=== PATIENT | female | born 1995 | race Caucasian/White ===

== ENCOUNTER 2017-11-20 05:30 | Emergency (ER) | payer OTHER ==
--- NOTE | 2017-11-20 05:45 | ED Physician Documentation ---
PD HPI OVERDOSE - Stated complaint Stated Complaint: POSS MED OD - History obtained from History obtained from: Patient - History of Present Illness Timing - onset: How many hours ago (1) Subtance(s) ingested: Single (she says she took about 10 (estimated) tablets of her Elavil that she is prescribed PRN for sleep. They are 10 mg tablets. She denies suicidal intent per se, but says she was feeling depressed and did it impulsively. Wanting to sleep longer but not kill herslef. She told her friend about it and the friend brought her here cooperatively to get evaluated. Patient says she would like help from us.) Associated symptoms: Other (sleepy). No: Resp depression, Altered mental status Contributing factors: Depresssed. No: Suicidal, Alchoholic, Substance abuse Similar symptoms before: Has not had sx before Recently seen: Not recently seen Review of Systems Constitutional: denies: Fever, Chills Nose: denies: Rhinorrhea / runny nose, Congestion Throat: denies: Sore throat Cardiac: denies: Chest pain / pressure, Palpitations, Pedal edema, Calf pain Respiratory: denies: Cough GI: reports: Nausea. denies: Abdominal Pain, Vomiting, Diarrhea : denies: Dysuria, Frequency Skin: denies: Rash, Lesions Neurologic: reports: Other (sleepy). denies: Focal weakness, Numbness, Near syncope Psychiatric: reports: Depressed, Insomnia. denies: Suicidal, Delusions, Anxiety Endocrine: denies: Weight loss Immunocompromised: denies: Immunocompromised PD PAST MEDICAL HISTORY - Past Medical History Cardiovascular: None Respiratory: None Neuro: None Endocrine/Autoimmune: None GI: None : None HEENT: None Psych: None Musculoskeletal: Rheumatoid arthritis Derm: None - Present Medications Home Medications: Ambulatory Orders Medication Instructions Recorded Confirmed Amitriptyline [Elavil] 10 mg PO DAILY PRN 07/16/16 03/23/17 Hydracoroquin 300 mg PO DAILY 07/16/16 03/23/17 Meloxicam 15 mg PO DAILY 07/16/16 03/23/17 tiZANidine [Zanaflex] 4 mg PO DAILY 07/16/16 03/23/17 Golimumab [Simponi] 50 mg SQ ONCE 12/14/16 03/23/17 cycloSPORINE [Cyclosporine] 25 mg PO BID 12/14/16 03/23/17 - Allergies Allergies/Adverse Reactions: Allergies Allergy/AdvReac Type Severity Reaction Status Date / Time cefprozil [From Cefzil] Allergy Itching Verified 11/20/17 05:56 promethazine HCl * Allergy Itching Verified 11/20/17 05:56 [From Phenergan] Sulfa (Sulfonamide Allergy Cramps Verified 11/20/17 05:56 Antibiotics) - Social History Smoking Status: Never smoker PD ED PE NORMAL - Vitals Vital signs reviewed: Yes - General General: Alert and oriented X 3 (slightly sleepy but conversant.), No acute distress, Well developed/nourished - HEENT HEENT: Atraumatic, Pharynx benign - Neck Neck: Supple, no meningeal sign, No adenopathy - Cardiac Cardiac: RRR (tachycardic at 120), No murmur - Respiratory Respiratory: Clear bilaterally - Abdomen Abdomen: Normal bowel sounds, Soft, Non tender, Non distended - Female Female : Deferred - Rectal Rectal: Deferred - Back Back: No CVA TTP - Derm Derm: Normal color, Warm and dry - Extremities Extremities: No tenderness to palpate, Normal ROM s pain, No edema, No calf tenderness / cord - Neuro Neuro: Alert and oriented X 3, No motor deficit, No sensory deficit, Normal speech Eye Opening: Spontaneous Motor: Obeys Commands Verbal: Oriented GCS Score: 15 - Psych Psych: Normal mood. No: Normal affect (slightly flat) Results - Vitals Vitals: Vital Signs - 24 hr 11/20/17 11/20/17 11/20/17 05:35 06:31 06:54 Temperature 36.6 C Heart Rate 122 H 120 H 118 H Respiratory 20 18 18 Rate Blood Pressure 149/95 H 123/95 H 123/95 H O2 Saturation 100 99 98 Oxygen O2 Source Room air - EKG (time done) 05:47 Rate: Rate (enter#) (132) Rhythm: Sinus tachycardia [place]: Normal Intervals: Normal DE QRS: Normal Ischemia: Normal ST segments. No: ST elevation c/w ischemia, ST depression Compare to prior EKG: Old EKG unavailable - Labs Labs: Laboratory Tests 11/20/17 11/20/17 11/20/17 05:49 05:49 05:49 WBC 13.7 H RBC 4.76 Hgb 13.5 Hct 41.0 MCV 86.1 MCH 28.3 MCHC 32.8 RDW 13.7 Plt Count 336 MPV 8.0 Neut # 10.3 H Lymph # 2.4 Foster # 0.9 Eos # 0.1 Baso # 0.1 Absolute Nucleated RBC 0.02 Nucleated RBC % 0.1 VBG pH VBG pCO2 VBG pO2 VBG HCO3 VBG Total CO2 VBG O2 Saturation VBG Base Excess Sodium 137 Potassium 3.6 Chloride 103 Carbon Dioxide 22 Anion Gap 12.0 BUN 11 Creatinine 0.7 Estimated GFR (MDRD) 105 Glucose 110 H Calcium 8.9 Magnesium 1.6 L Total Bilirubin 0.3 AST 67 H ALT 33 Alkaline Phosphatase 100 Total Protein 7.3 Albumin 4.0 Globulin 3.3 Albumin/Globulin Ratio 1.2 Lipase 21 L TSH 2.80 Salicylates < 6.0 Acetaminophen < 10 L Ethyl Alcohol < 5.0 11/20/17 07:28 WBC RBC Hgb Hct MCV MCH MCHC RDW Plt Count MPV Neut # Lymph # Foster # Eos # Baso # Absolute Nucleated RBC Nucleated RBC % VBG pH 7.429 H VBG pCO2 35.7 L VBG pO2 67.2 H VBG HCO3 23.1 VBG Total CO2 24.2 VBG O2 Saturation 94.2 H VBG Base Excess -0.8 Sodium Potassium Chloride Carbon Dioxide Anion Gap BUN Creatinine Estimated GFR (MDRD) Glucose Calcium Magnesium Total Bilirubin AST ALT Alkaline Phosphatase Total Protein Albumin Globulin Albumin/Globulin Ratio Lipase TSH Salicylates Acetaminophen Ethyl Alcohol PD MEDICAL DECISION MAKING - ED course Complexity details: reviewed results, considered differential (overdose of elavil but at dose that should not be very harmful (about 100 mg). Tachycardic with normal conduction. Will give IV fluids, and since ingestion only about an hour ago, will give charcoal. Expect some tachycardia and will see if it improves. Will need to watch her few hours, and can have SW talk with her as well. ), d/w patient, other (Care given over to Dr. Machado, [facility] [place], with verbal report. ) Departure - Departure Clinical Impression: Depression Qualifiers: Depression Type: dysthymia Qualified Code(s): F34.1 - Dysthymic disorder Medication overdose Qualifiers: Encounter type: initial encounter Injury intent: undetermined intent Qualified Code(s): T50.904A - Poisoning by unspecified drugs, medicaments and biological substances, undetermined, initial encounter Condition: Stable Record reviewed to determine appropriate education?: Yes
[2017-11-20] MEDS ORDERED: SODIUM CHLORIDE 0.9% 1,000 ML IV ONE (05:53)
[2017-11-20] MEDS ORDERED: SODIUM BICARBONATE 100 MEQ in SODIUM CHLORIDE 0.9% 1,000 ML IV ONE (05:56)
[2017-11-20 06:01] LABS: BASOPHILS # (AUTO) 0.1 10^3/uL (0.0-0.1); BASOPHILS % (AUTO) 0.9 %; EOSINOPHILS # (AUTO) 0.1 10^3/uL (0.0-0.7); EOSINOPHILS % (AUTO) 0.6 %; HGB - HEMOGLOBIN 13.5 g/dL (12.0-16.0); LYMPHOCYTES # (AUTO) 2.4 10^3/uL (1.5-3.5); LYMPHOCYTES % (AUTO) 17.4 %; MEAN CORPUSCULAR HEMOGLOBIN 28.3 pg (27.0-31.0); MEAN CORPUSCULAR HGB CONC 32.8 g/dL (32.0-36.0); MEAN CORPUSCULAR VOLUME 86.1 fL (81.0-99.0); MONOCYTES # (AUTO) 0.9 10^3/uL (0.0-1.0); MONOCYTES % (AUTO) 6.2 %; NEUTROPHILS # (AUTO) 10.3 10^3/uL (1.5-6.6); NEUTROPHILS % (AUTO) 74.9 %; PLT - PLATELET COUNT 336 10^3/uL (130-450); RED BLOOD COUNT 4.76 10^6/uL (4.20-5.40); RED CELL DISTRIBUTION WIDTH 13.7 % (12.0-15.0); WHITE BLOOD COUNT 13.7 x10^3/uL (4.8-10.8)
[2017-11-20] MEDS ORDERED: CHARCOAL ACTIVATED 25 GM/120 ML BOTTLE PO STA (06:01)
[2017-11-20 06:13] LABS: ALBUMIN/GLOBULIN RATIO 1.2 (1.0-2.2); ALKALINE PHOSPHATASE 100 IU/L (42-121); ALT ALANINE AMINOTRANSFERASE 33 IU/L (10-60); AST ASPARTATE AMINOTRANSFERASE 67 IU/L (10-42); BILIRUBIN,TOTAL 0.3 mg/dL (0.2-1.0); BUN - BLOOD UREA NITROGEN 11 mg/dL (6-20); CALCIUM 8.9 mg/dL (8.5-10.3); CARBON DIOXIDE - CO2 22 mmol/L (21-32); CHLORIDE 103 mmol/L (101-111); CREATININE 0.7 mg/dL (0.4-1.0); GFR - MDRD 105 (>89); GLUCOSE 110 mg/dL (70-100); LIPASE 21 U/L (22-51); MAGNESIUM 1.6 mg/dL (1.7-2.8); SALICYLATE < 6.0 mg/dL; SODIUM 137 mmol/L (135-145); TOTAL PROTEIN 7.3 g/dL (6.7-8.2)
[2017-11-20 06:19] LABS: ACETAMINOPHEN < 10 ug/mL (10-30)
[2017-11-20] MEDS ORDERED: SODIUM BICARBONATE ABBOJECT 50 MEQ/50 ML SYRINGE ONE (06:23)
[2017-11-20 07:36] LABS: VBG PCO2 35.7 mmHg (41-51); VBG PH 7.429 (7.31-7.41); VBG PO2 67.2 mmHg (25-47)
[2017-11-20 07:37] LABS: VBG BASE EXCESS -0.8 mmol/L (-2 - +2); VBG TOTAL CO2 24.2 mmol/L (24-29)
--- NOTE | 2017-11-20 07:58 | ED Physician Documentation ---
History of Present Illness - Stated complaint Stated Complaint: POSS MED OD - Chief complaint Chief Complaint: MHE Review of Systems Constitutional: denies: Fever Cardiac: denies: Chest pain / pressure Respiratory: denies: Dyspnea, Cough GI: denies: Abdominal Pain Skin: denies: Rash Neurologic: denies: Headache Psychiatric: reports: Suicidal (maybe) PD PAST MEDICAL HISTORY - Past Medical History Past Medical History: No Cardiovascular: None Respiratory: None Neuro: None Endocrine/Autoimmune: None GI: None : None HEENT: None Psych: None Musculoskeletal: Rheumatoid arthritis Derm: None - Past Surgical History Past Surgical History: Yes - Present Medications Home Medications: Ambulatory Orders Medication Instructions Recorded Confirmed Amitriptyline [Elavil] 10 mg PO DAILY PRN 07/16/16 03/23/17 Hydracoroquin 300 mg PO DAILY 07/16/16 03/23/17 Meloxicam 15 mg PO DAILY 07/16/16 03/23/17 tiZANidine [Zanaflex] 4 mg PO DAILY 07/16/16 03/23/17 Golimumab [Simponi] 50 mg SQ ONCE 12/14/16 03/23/17 cycloSPORINE [Cyclosporine] 25 mg PO BID 12/14/16 03/23/17 - Allergies Allergies/Adverse Reactions: Allergies Allergy/AdvReac Type Severity Reaction Status Date / Time cefprozil [From Cefzil] Allergy Itching Verified 11/20/17 05:56 promethazine HCl * Allergy Itching Verified 11/20/17 05:56 [From Phenergan] Sulfa (Sulfonamide Allergy Cramps Verified 11/20/17 05:56 Antibiotics) - Social History Does the pt smoke?: No Smoking Status: Never smoker Does the pt have substance abuse?: No - POLST Patient has POLST: No PD ED PE NORMAL - Vitals Vital signs reviewed: Yes - General General: Alert and oriented X 3 - HEENT HEENT: PERRL - Cardiac Cardiac: RRR (tachy) - Respiratory Respiratory: Clear bilaterally - Abdomen Abdomen: Soft, Non tender - Neuro Neuro: Alert and oriented X 3 Results - Vitals Vitals: Vital Signs - 24 hr 11/20/17 11/20/17 11/20/17 05:35 06:31 06:54 Temperature 36.6 C Heart Rate 122 H 120 H 118 H Respiratory 20 18 18 Rate Blood Pressure 149/95 H 123/95 H 123/95 H O2 Saturation 100 99 98 11/20/17 11/20/17 11/20/17 09:00 10:06 12:17 Temperature Heart Rate 108 H 124 H 105 H Respiratory 17 16 17 Rate Blood Pressure 128/84 H 128/90 H 129/89 H O2 Saturation 98 99 99 Oxygen O2 Source Room air - Labs Labs: Laboratory Tests 11/20/17 11/20/17 11/20/17 05:49 05:49 05:49 WBC 13.7 H RBC 4.76 Hgb 13.5 Hct 41.0 MCV 86.1 MCH 28.3 MCHC 32.8 RDW 13.7 Plt Count 336 MPV 8.0 Neut # 10.3 H Lymph # 2.4 Gillespie # 0.9 Eos # 0.1 Baso # 0.1 Absolute Nucleated RBC 0.02 Nucleated RBC % 0.1 VBG pH VBG pCO2 VBG pO2 VBG HCO3 VBG Total CO2 VBG O2 Saturation VBG Base Excess Sodium 137 Potassium 3.6 Chloride 103 Carbon Dioxide 22 Anion Gap 12.0 BUN 11 Creatinine 0.7 Estimated GFR (MDRD) 105 Glucose 110 H Calcium 8.9 Magnesium 1.6 L Total Bilirubin 0.3 AST 67 H ALT 33 Alkaline Phosphatase 100 Total Protein 7.3 Albumin 4.0 Globulin 3.3 Albumin/Globulin Ratio 1.2 Lipase 21 L TSH 2.80 Salicylates < 6.0 Acetaminophen < 10 L Ethyl Alcohol < 5.0 11/20/17 07:28 WBC RBC Hgb Hct MCV MCH MCHC RDW Plt Count MPV Neut # Lymph # Gillespie # Eos # Baso # Absolute Nucleated RBC Nucleated RBC % VBG pH 7.429 H VBG pCO2 35.7 L VBG pO2 67.2 H VBG HCO3 23.1 VBG Total CO2 24.2 VBG O2 Saturation 94.2 H VBG Base Excess -0.8 Sodium Potassium Chloride Carbon Dioxide Anion Gap BUN Creatinine Estimated GFR (MDRD) Glucose Calcium Magnesium Total Bilirubin AST ALT Alkaline Phosphatase Total Protein Albumin Globulin Albumin/Globulin Ratio Lipase TSH Salicylates Acetaminophen Ethyl Alcohol PD MEDICAL DECISION MAKING - ED course ED course: assumed care 730 AM 22 f took approx 10 10mg elavil at 420 AM she is vague re whether she was trying to harm herself or just trying to sleep no other meds or EtOH she is very sleepy now denies fever cough NVD CP AP called poison control - advised tjis is unlikely to be toxic - can dc bicarb - ons 6 hr watching for tachy QRS widening, BP fluctuations - then will be clear for MHE seen by PITO Perkins and per PITO is not suicidal at this time, has friends locally and is aware of resources through (see PITO note) watched until 1215 and HR down Departure - Departure Disposition: Home, Self Care Clinical Impression: Depression Qualifiers: Depression Type: dysthymia Qualified Code(s): F34.1 - Dysthymic disorder Medication overdose Qualifiers: Encounter type: initial encounter Injury intent: undetermined intent Qualified Code(s): T50.904A - Poisoning by unspecified drugs, medicaments and biological substances, undetermined, initial encounter Condition: Stable Comments: Please be very careful to only take your medications as prescribed. Even a few extra doses can be very dangerous. 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 Return to the ER if worse.
[2017-11-20] MEDS ORDERED: MAGNESIUM OXIDE 400 MG TABLET PO STA (09:30)
[2017-11-20 12:19] VITALS: BP 129/89
== END 2017-11-20 12:25 | disposition home or self-care (01) ==
LOC: ED 05:30
DX: F34.1 Dysthymic disorder (principal); T43.011A Poisoning by tricyclic antidepressants, accidental (unintentional), initial encounter; R00.0 Tachycardia, unspecified
CPT/HCPCS: 36415; 80053; 80307; 80320; 80329; 82803; 83690; 83735; 84443; 85025; 93005; 96365; 96366; 99284; A9270

== ENCOUNTER 2017-11-24 18:48 | Emergency (ER) | payer OTHER ==
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
[2017-11-24 21:44] VITALS: BP 158/111
== END 2017-11-24 21:00 | disposition home or self-care (01) ==
LOC: ED 18:48
DX: R20.2 Paresthesia of skin (principal)
CPT/HCPCS: 99283

== ENCOUNTER 2021-03-16 18:46 | Outpatient (CLI) | payer OTHER ==
--- NOTE | 2021-03-17 11:22 | Ultrasound Report ---
PROCEDURE: OB F/U or Repeat INDICATIONS: SUPERVISION OF HIGH RISK OUTSIDE/PRIOR DATING DATA: Last menstrual period (LMP): Not available. LMP-based estimated date of delivery (ELIZABETH): Not available. First dating scan (date and location): This study, and prior exam not available for review.. Estimated date of delivery (ELIZABETH) from first dating scan: 04/27/2021. TECHNIQUE: Real-time scanning was performed of the fetus, with image documentation and biometric measurements. Endovaginal scanning: Not needed. COMPARISON: Not available FINDINGS: General: A single living intrauterine gestation is present. Presentation: Vertex Placenta: Placental position is anterior, without previa. Amniotic fluid index: 10.1 cm, normal for gestational age. heart rate: 125 beats per minute. Maternal cervical canal: 4.8 cm long; normal length is 2.5 cm or more. biometrics: Biparietal diameter: 8.8 cm, 35 weeks 4 days Head circumference: 31.1 cm, 34 weeks 5 days Abdominal circumference: 30.3 cm, 34 weeks 2 days Femur length: 6.7 cm, 34 weeks 4 days Estimated gestational age from initial scan: 34 weeks 0 days. Composite gestational age from present scan: 34 weeks 6 days Estimated weight and percentile: 2452 g, 60th percentile Measurement variability in biometric dating: +/- 10 days from 12-20 weeks gestation, +/- 2 weeks from 20-30 weeks gestation, +/- 3 weeks at 30 weeks gestation or more. Other: Normal survey of anatomy.. IMPRESSION: 34 week 6 day gestational age from this study, delivered a projected to be centered on normal survey of anatomy. Normal amniotic fluid volume, anterior placenta, vertex prese ntation. Reviewed by: Moiz Cabrera MD on 03/17/2021 11:20 AM PDT Approved by: Moiz Cabrera MD on 03/17/2021 11:20 AM PDT Station ID: [id number]
== END 2021-03-16 18:47 | disposition home or self-care (01) ==
LOC: DI 18:46
PROVIDERS: ATTEND Obstetrics & Gynecology
DX: O09.90 Supervision of high risk pregnancy, unspecified, unspecified trimester (principal); O43.129 Velamentous insertion of umbilical cord, unspecified trimester; O16.9 Unspecified maternal hypertension, unspecified trimester; Z3A.34 34 weeks gestation of pregnancy

== ENCOUNTER 2021-03-25 14:25 | Outpatient (CLI) | payer OTHER ==
[2021-03-25 15:13] LABS: BASOPHILS # (AUTO) 0.1 10^3/uL (0.0-0.1); BASOPHILS % (AUTO) 0.4 %; EOSINOPHILS # (AUTO) 0.1 10^3/uL (0.0-0.7); EOSINOPHILS % (AUTO) 0.8 %; HCT - HEMATOCRIT 31.4 % (37.0-47.0); HGB - HEMOGLOBIN 10.5 g/dL (12.0-16.0); LYMPHOCYTES # (AUTO) 3.3 10^3/uL (1.5-3.5); LYMPHOCYTES % (AUTO) 27.9 %; MEAN CORPUSCULAR HEMOGLOBIN 27.6 pg (27.0-31.0); MEAN CORPUSCULAR HGB CONC 33.4 g/dL (32.0-36.0); MEAN CORPUSCULAR VOLUME 82.4 fL (81.0-99.0); MEAN PLATELET VOLUME 9.9 fL (7.9-10.8); MONOCYTES # (AUTO) 0.8 10^3/uL (0.0-1.0); MONOCYTES % (AUTO) 6.6 %; NEUTROPHILS # (AUTO) 7.5 10^3/uL (1.5-6.6); PLT - PLATELET COUNT 308 10^3/uL (130-450); RED BLOOD COUNT 3.81 10^6/uL (4.20-5.40); WHITE BLOOD COUNT 11.7 x10^3/uL (4.8-10.8)
[2021-03-25 15:25] LABS: ALBUMIN 2.9 g/dL (3.2-5.5); ALBUMIN/GLOBULIN RATIO 0.9 (1.0-2.2); BILIRUBIN,TOTAL 0.3 mg/dL (0.2-1.0); CALCIUM 8.8 mg/dL (8.5-10.3); CREATININE 0.7 mg/dL (0.4-1.0); POTASSIUM 4.2 mmol/L (3.5-5.0); URIC ACID 5.5 mg/dL (2.6-7.2)
[2021-03-25 15:41] LABS: RUPTURE OF MEMBRANES PLUS NEGATIVE (NEGATIVE)
[2021-03-25 15:41] LABS: CREATININE,URINE 174.2 mg/dL; PROTEIN/CREATININE RATIO,URINE 0.1 (<=0.2)
[2021-03-25 16:20] VITALS: BP 132/64
--- NOTE | 2021-03-25 16:35 | PROCEDURE REPORT ---
- HPI Diagnosis/Indication for NST: Gestational Hypertension Current EDU 04/27/21 Gestation 35 Weeks and 2 Days 1 Para 0 Vital Signs Temperature 37.0 C 03/25/21 14:40 Heart Rate 103 H 03/25/21 14:40 Respiratory Rate 18 03/25/21 14:40 Blood Pressure 112/73 03/25/21 14:40 O2 Saturation 98 03/25/21 14:40 Temperature 37.0 C 03/25/21 14:40 Heart Rate 103 H 03/25/21 14:40 Respiratory Rate 18 03/25/21 14:40 Blood Pressure 132/64 H 03/25/21 16:00 O2 Saturation 98 03/25/21 14:40 - NST Procedure NST Procedure Start Date 03/25/21 Start Time 14:34 Stop Time 16:04 Vibroacoustic Stimulation Used No Patient States Movement Yes - Results and Plan Findings/Impression: REACTIVE NST P/C 0.1 NORMAL BP Plan: CONTINUE ANTINATAL MONITORING
== END 2021-03-25 16:10 | disposition home or self-care (01) ==
LOC: WFO 14:25 → FBP 14:27 → WFO 16:10
PROVIDERS: ATTEND Obstetrics & Gynecology
DX: O13.3 Gestational [pregnancy-induced] hypertension without significant proteinuria, third trimester (principal); O09.93 Supervision of high risk pregnancy, unspecified, third trimester; Z3A.35 35 weeks gestation of pregnancy
CPT/HCPCS: 36415; 59025; 80053; 82570; 84112; 84156; 84550; 85025; 87081; 99214

== ENCOUNTER 2021-04-02 12:37 | Outpatient (CLI) | payer OTHER ==
[2021-04-02 13:07] LABS: BASOPHILS % (AUTO) 0.3 %; EOSINOPHILS # (AUTO) 0.1 10^3/uL (0.0-0.7); EOSINOPHILS % (AUTO) 0.7 %; HCT - HEMATOCRIT 32.8 % (37.0-47.0); HGB - HEMOGLOBIN 10.9 g/dL (12.0-16.0); LYMPHOCYTES # (AUTO) 3.4 10^3/uL (1.5-3.5); LYMPHOCYTES % (AUTO) 25.8 %; MEAN CORPUSCULAR HEMOGLOBIN 27.5 pg (27.0-31.0); MEAN CORPUSCULAR HGB CONC 33.2 g/dL (32.0-36.0); MEAN CORPUSCULAR VOLUME 82.6 fL (81.0-99.0); MEAN PLATELET VOLUME 9.9 fL (7.9-10.8); MONOCYTES # (AUTO) 0.7 10^3/uL (0.0-1.0); MONOCYTES % (AUTO) 5.6 %; NEUTROPHILS # (AUTO) 8.7 10^3/uL (1.5-6.6); NEUTROPHILS % (AUTO) 67.1 %; PLT - PLATELET COUNT 297 10^3/uL (130-450); RED BLOOD COUNT 3.97 10^6/uL (4.20-5.40); RED CELL DISTRIBUTION WIDTH 15.6 % (12.0-15.0)
[2021-04-02 13:20] LABS: ALBUMIN 2.8 g/dL (3.2-5.5); ALBUMIN/GLOBULIN RATIO 0.9 (1.0-2.2); BILIRUBIN,TOTAL 0.4 mg/dL (0.2-1.0); CALCIUM 8.8 mg/dL (8.5-10.3); CREATININE 0.5 mg/dL (0.4-1.0); POTASSIUM 4.2 mmol/L (3.5-5.0); TOTAL PROTEIN 5.9 g/dL (6.7-8.2)
[2021-04-02 13:21] LABS: CREATININE,URINE 115.1 mg/dL; PROTEIN/CREATININE RATIO,URINE 0.1 (<=0.2)
[2021-04-02 13:22] VITALS: BP 126/89
--- NOTE | 2021-04-02 15:08 | Ultrasound Report ---
PROCEDURE: OB Limited INDICATIONS: r/o pre e OUTSIDE/PRIOR DATING DATA: Last menstrual period (LMP): 07/21/2020. LMP-based estimated date of delivery (ELIZABETH): 04/27/2021. First dating scan (date and location): 03/16/2021. Estimated date of delivery (ELIZABETH) from first dating scan: 04/27/2021. TECHNIQUE: Real-time scanning was performed of the fetus, with image documentation. Endovaginal scanning: Not needed COMPARISON: 03/16/2021 OB ultrasound FINDINGS: A single living intrauterine gestation is present. Presentation: Vertex Placenta: Placental position is anterior, without previa. Amniotic fluid index: 16.9 cm, normal for gestational age. heart rate: 132 beats per minutes. Maternal cervical canal: 3.7 cm long; normal length is 2.5 cm or more. Estimated gestational age from initial scan: 36 weeks 3 days. IMPRESSION: 36 weeks 3 days gestational age with cardiac activity observed and normal amniotic fluid index of 16.9 cm with largest pocket of this amniotic fluid measuring 6.1 cm. The delivery date is projected to be centered on 04/27/2021 from the earliest available OB ultrasound Reviewed by: Moiz Cabrera MD on 04/02/2021 3:07 PM PDT Approved by: Moiz Cabrera MD on 04/02/2021 3:07 PM PDT Station ID: [id number]
--- NOTE | 2021-04-21 21:11 | PROCEDURE REPORT ---
- HPI Diagnosis/Indication for NST: Pre- Hypertension Current EDU 04/27/21 Gestation 36 Weeks and 3 Days 1 Para 0 Vital Signs Heart Rate 100 04/02/21 12:52 Respiratory Rate 20 04/02/21 12:52 Blood Pressure 132/102 H 04/02/21 12:52 Temperature 98.4 F 04/02/21 13:37 Heart Rate 95 04/02/21 13:01 Respiratory Rate 17 04/02/21 13:01 Blood Pressure 126/89 H 04/02/21 13:01 O2 Saturation 98 04/02/21 13:01 - NST Procedure NST Procedure Start Date 04/02/21 Start Time 12:51 Stop Time 14:04 Vibroacoustic Stimulation Used No Patient States Movement Yes EFM 135 mod eduin 15x15 accels no decels TOCO: quiet - Results and Plan Findings/Impression: 25 yo at 36+3 with CHTN here for NST Elevated blood pressures Sent PIH labs: CMP/CBC/protein:creatinine wnl Warning signs reviewed Not yet meeting criteria for medication Cat I tracing Cont with twice weekly NST and weekly RAMSES DX: IUP at 36+3 wga CHTN DOS: 04/02/21 NST read 04/02/21
== END 2021-04-02 14:35 | disposition home or self-care (01) ==
LOC: WFO 12:37 → FBP 12:38 → WFO 14:35
PROVIDERS: ATTEND Obstetrics & Gynecology
DX: O10.913 Unspecified pre-existing hypertension complicating pregnancy, third trimester (principal); Z3A.36 36 weeks gestation of pregnancy
CPT/HCPCS: 36415; 80053; 82570; 83615; 84156; 84550; 85025; 86850; 86900; 86901; 99214

== ENCOUNTER 2021-04-04 09:01 | Outpatient (CLI) | payer OTHER ==
[2021-04-04 09:17] VITALS: BP 126/86
--- NOTE | 2021-04-21 21:05 | PROCEDURE REPORT ---
- HPI Diagnosis/Indication for NST: Gestational Hypertension Current EDU 04/27/21 Gestation 36 Weeks and 5 Days 1 Para 0 Vital Signs Temperature 98.4 F 04/04/21 09:16 Heart Rate 93 04/04/21 09:16 Respiratory Rate 18 04/04/21 09:16 Blood Pressure 126/86 H 04/04/21 09:16 O2 Saturation 100 04/04/21 09:16 Temperature 98.4 F 04/04/21 09:16 Heart Rate 93 04/04/21 09:16 Respiratory Rate 18 04/04/21 09:16 Blood Pressure 126/86 H 04/04/21 09:16 O2 Saturation 100 04/04/21 09:16 - NST Procedure NST Procedure Start Date 04/04/21 Start Time 09:12 Stop Time 09:51 Vibroacoustic Stimulation Used No Patient States Movement Yes EFM 145 mod eduin 15x15 accels no decels TOCO: quiet - Results and Plan Findings/Impression: 25 yo at 36+5 wga with affected by CHTN here for NST Cat I tracing Cont with twice weekly NST and weekly RAMSES DX: IUP at 36+5 wga CHTN NST read 04/04/21 DOS 04/04/21
== END 2021-04-04 10:05 | disposition home or self-care (01) ==
LOC: WFO 09:01 → FBP 09:02 → WFO 10:05
PROVIDERS: ATTEND Obstetrics & Gynecology
DX: O10.913 Unspecified pre-existing hypertension complicating pregnancy, third trimester (principal); Z3A.36 36 weeks gestation of pregnancy
CPT/HCPCS: 59025

== ENCOUNTER 2021-04-08 08:46 | Outpatient (CLI) | payer OTHER ==
[2021-04-08 09:55] LABS: BASOPHILS # (AUTO) 0.1 10^3/uL (0.0-0.1); BASOPHILS % (AUTO) 0.6 %; EOSINOPHILS # (AUTO) 0.1 10^3/uL (0.0-0.7); EOSINOPHILS % (AUTO) 0.8 %; HCT - HEMATOCRIT 31.2 % (37.0-47.0); HGB - HEMOGLOBIN 10.5 g/dL (12.0-16.0); LYMPHOCYTES # (AUTO) 3.6 10^3/uL (1.5-3.5); LYMPHOCYTES % (AUTO) 29.9 %; MEAN CORPUSCULAR HEMOGLOBIN 27.7 pg (27.0-31.0); MEAN CORPUSCULAR HGB CONC 33.7 g/dL (32.0-36.0); MEAN CORPUSCULAR VOLUME 82.3 fL (81.0-99.0); MEAN PLATELET VOLUME 10.1 fL (7.9-10.8); MONOCYTES # (AUTO) 0.6 10^3/uL (0.0-1.0); MONOCYTES % (AUTO) 5.3 %; NEUTROPHILS # (AUTO) 7.6 10^3/uL (1.5-6.6); PLT - PLATELET COUNT 290 10^3/uL (130-450); RED BLOOD COUNT 3.79 10^6/uL (4.20-5.40); RED CELL DISTRIBUTION WIDTH 15.6 % (12.0-15.0)
[2021-04-08 10:07] LABS: CREATININE,URINE 327.7 mg/dL; PROTEIN/CREATININE RATIO,URINE 0.1 (<=0.2)
[2021-04-08 10:09] LABS: ALBUMIN 2.5 g/dL (3.2-5.5); ALBUMIN/GLOBULIN RATIO 0.8 (1.0-2.2); BILIRUBIN,TOTAL 0.3 mg/dL (0.2-1.0); CALCIUM 9.3 mg/dL (8.5-10.3); CREATININE 0.7 mg/dL (0.4-1.0); POTASSIUM 3.9 mmol/L (3.5-5.0); TOTAL PROTEIN 5.6 g/dL (6.7-8.2); URIC ACID 6.9 mg/dL (2.6-7.2)
[2021-04-08 10:19] VITALS: BP 125/80
--- NOTE | 2021-04-21 21:07 | PROCEDURE REPORT ---
- HPI Diagnosis/Indication for NST: Pre- Hypertension Current EDU 04/27/21 Gestation 37 Weeks and 2 Days 1 Para 0 Vital Signs Temperature 98.6 F 04/08/21 09:11 Blood Pressure 140/96 H 04/08/21 09:11 Temperature 98.6 F 04/08/21 09:11 Heart Rate Respiratory Rate 18 04/08/21 09:12 Blood Pressure 125/80 04/08/21 10:10 O2 Saturation - NST Procedure NST Procedure Start Date 04/08/21 Start Time 09:01 Stop Time 09:30 Vibroacoustic Stimulation Used No Patient States Movement Yes EFM 135 mod eduin 15x15 accels no decels TOCO: quiet - Results and Plan Findings/Impression: 25 yo at 37+2 wga with CHTN here for NST Cat I tracing Cont with twice weekly NST and weekly RAMSES DX: IUP at 37+2 CHTN NST read 04/08/21 DOS 04/08/21
== END 2021-04-08 10:18 | disposition home or self-care (01) ==
LOC: WFO 08:46 → FBP 08:50 → WFO 10:18
PROVIDERS: ATTEND Obstetrics & Gynecology
DX: O10.913 Unspecified pre-existing hypertension complicating pregnancy, third trimester (principal); Z3A.37 37 weeks gestation of pregnancy
CPT/HCPCS: 36415; 59025; 80053; 82570; 84156; 84550; 85025; 99213

== ENCOUNTER 2021-04-08 19:44 | Outpatient (CLI) | payer OTHER ==
[2021-04-08 21:15] VITALS: BP 143/98
--- NOTE | 2021-04-12 09:52 | PROCEDURE REPORT ---
- HPI Current EDU 04/27/21 Gestation 37 Weeks and 2 Days 1 Para 0 Vital Signs Temperature 98.4 F 04/08/21 20:01 Heart Rate 93 04/08/21 20:01 Respiratory Rate 04/08/21 20:01 Blood Pressure 156/87 H 04/08/21 20:01 O2 Saturation 99 04/08/21 20:01 Temperature 98.4 F 04/08/21 20:01 Heart Rate 89 04/08/21 21:00 Respiratory Rate 04/08/21 21:00 Blood Pressure 143/98 H 04/08/21 21:15 O2 Saturation 99 04/08/21 20:45 - NST Procedure NST Procedure Start Date 04/08/21 Start Time 20:00 Stop Time 21:22 Vibroacoustic Stimulation Used No Patient States Movement Yes Patient had NST for Hypertension complicating . 25yo at 37 37 3/7. NST with baseline of 135 and moderate variability. Accelerations of 15X15. No decelerations. Category I and Reactive monitor strip.
== END 2021-04-08 21:49 | disposition home or self-care (01) ==
LOC: WFO 19:44 → FBP 19:45 → WFO 21:49
PROVIDERS: ATTEND Obstetrics & Gynecology
DX: O10.913 Unspecified pre-existing hypertension complicating pregnancy, third trimester (principal); Z3A.37 37 weeks gestation of pregnancy
CPT/HCPCS: 36415; 59025; 80053; 82570; 84156; 84550; 85025; 99213; 99215

== ENCOUNTER 2021-04-10 14:23 | Outpatient (CLI) | payer OTHER ==
[2021-04-10 15:24] LABS: BASOPHILS # (AUTO) 0.1 10^3/uL (0.0-0.1); BASOPHILS % (AUTO) 0.5 %; EOSINOPHILS # (AUTO) 0.1 10^3/uL (0.0-0.7); EOSINOPHILS % (AUTO) 0.5 %; HCT - HEMATOCRIT 30.7 % (37.0-47.0); HGB - HEMOGLOBIN 10.1 g/dL (12.0-16.0); LYMPHOCYTES # (AUTO) 2.9 10^3/uL (1.5-3.5); LYMPHOCYTES % (AUTO) 24.8 %; MEAN CORPUSCULAR HEMOGLOBIN 27.4 pg (27.0-31.0); MEAN CORPUSCULAR HGB CONC 32.9 g/dL (32.0-36.0); MEAN CORPUSCULAR VOLUME 83.2 fL (81.0-99.0); MEAN PLATELET VOLUME 9.9 fL (7.9-10.8); MONOCYTES # (AUTO) 0.8 10^3/uL (0.0-1.0); MONOCYTES % (AUTO) 7.1 %; NEUTROPHILS # (AUTO) 7.7 10^3/uL (1.5-6.6); NEUTROPHILS % (AUTO) 66.6 %; PLT - PLATELET COUNT 273 10^3/uL (130-450); RED BLOOD COUNT 3.69 10^6/uL (4.20-5.40); RED CELL DISTRIBUTION WIDTH 15.9 % (12.0-15.0); WHITE BLOOD COUNT 11.5 x10^3/uL (4.8-10.8)
[2021-04-10 15:37] LABS: ALBUMIN 2.6 g/dL (3.2-5.5); ALBUMIN/GLOBULIN RATIO 0.8 (1.0-2.2); BILIRUBIN,TOTAL 0.4 mg/dL (0.2-1.0); CALCIUM 8.6 mg/dL (8.5-10.3); CREATININE 0.6 mg/dL (0.4-1.0); POTASSIUM 3.8 mmol/L (3.5-5.0); TOTAL PROTEIN 5.7 g/dL (6.7-8.2)
[2021-04-10 16:22] LABS: BILIRUBIN,URINE NEGATIVE (NEGATIVE); GLUCOSE, URINE (UA) NEGATIVE (NEGATIVE); KETONES,URINE (UA) NEGATIVE (NEGATIVE); LEUKOCYTE ESTERASE, URINE NEGATIVE (NEGATIVE); NITRITE,URINE NEGATIVE (NEGATIVE); OCCULT BLOOD,URINE NEGATIVE (NEGATIVE); PROTEIN,URINE NEGATIVE (NEGATIVE); UROBILINOGEN,URINE 0.2 (NORMAL) E.U./dL (NORMAL)
[2021-04-10 16:24] LABS: CLARITY,URINE CLEAR (CLEAR)
[2021-04-10 16:30] LABS: CREATININE,URINE 80.8 mg/dL; PROTEIN/CREATININE RATIO,URINE 0.1 (<=0.2)
[2021-04-10 16:39] VITALS: BP 132/84
--- NOTE | 2021-04-10 17:51 | PROVIDER PROGRESS NOTE ---
- HPI Chief Complaint: Hypertension/PIH Current : Current EDU 04/27/21 Gestation 37 Weeks and 4 Days 1 Para 0 Vital Signs Temperature 98.3 F 04/10/21 14:36 Heart Rate 109 H 04/10/21 14:36 Respiratory Rate 22 04/10/21 14:36 Blood Pressure 162/103 H 04/10/21 14:36 O2 Saturation 98 04/10/21 14:36 Temperature 98.3 F 04/10/21 14:36 Heart Rate 109 H 04/10/21 14:36 Respiratory Rate 22 04/10/21 14:36 Blood Pressure 132/84 H 04/10/21 16:30 O2 Saturation 98 04/10/21 14:36 - Exam Patient is 25 yo G1P) at 37 4/7 with elevated blood pressure at home and in the clinic. Patient was seen by Dr. Burch in the clinic who sent her to labor and delivery for evaluation. Patient has had a headache today that has come and gone away twice. Patient denies seeing spots before her eyes. Patient denies right upper quadrant pain or any abdominal pain. Patient reports good movement. Patient denies contractions, SROM or vaginal bleeding. General: Patient appears comfortable, lying on left side in triage bed. Does not appear to be in any distress. Chest: Clear to auscultation. Good breath sounds in all moreno. Heart: RRR without murmur or gallop. Abdomen: soft, non-tender to palpation. Gravid Extremities: NO pitting edema. Neuro: DTR's +2/+4 monitor: 140, moderate variability, accelerations present. No decelerations. All labs for pre-eclampsia were within normal limits. Discussed her anemia and to increase her iron to 3 times a day with Vitamin C and fiber gummy with each iron tablet. - Procedures NST Procedure: NST Procedure Start Time 20:00 Stop Time 21:22
[2021-04-10 22:06] LABS: CHLAMYDIA TRACHOMATIS DNA NEGATIVE (NEGATIVE); NEISSERIA GONORRHOEAE DNA NEGATIVE (NEGATIVE); TRICHOMONAS VAGINALIS DNA NEGATIVE (NEGATIVE)
[2021-04-11 12:47] LABS: HEPATITIS B SURFACE ANTIGEN NON-REACTIVE (NON-REACTIVE)
[2021-04-11 17:16] LABS: HIV AG/AB 4TH GEN NON-REACTIVE (NON-REACTIVE)
--- NOTE | 2021-04-15 13:07 | PROCEDURE REPORT ---
- HPI Current EDU 04/27/21 Gestation 37 Weeks and 4 Days 1 Para 0 Vital Signs Temperature 98.3 F 04/10/21 14:36 Heart Rate 109 H 04/10/21 14:36 Respiratory Rate 22 04/10/21 14:36 Blood Pressure 162/103 H 04/10/21 14:36 O2 Saturation 98 04/10/21 14:36 Temperature 98.3 F 04/10/21 14:36 Heart Rate 109 H 04/10/21 14:36 Respiratory Rate 22 04/10/21 14:36 Blood Pressure 132/84 H 04/10/21 16:30 O2 Saturation 98 04/10/21 14:36 Patient presented for NST and had elevated blood pressures. NST was baseline of 140 with moderate variability and accelerations present. No decelerations. No contractions. Category I NST and Reactive NST. Patient is having monitoring due to Gestational Diabetes and Hypertension in . - NST Procedure NST Procedure Start Date 04/10/21 Start Time 14:30 Stop Time 17:45 Vibroacoustic Stimulation Used No Patient States Movement Yes
== END 2021-04-10 17:50 | disposition home or self-care (01) ==
LOC: WFO 14:23 → FBP 14:26 → WFO 17:50
PROVIDERS: ATTEND Obstetrics & Gynecology
DX: O13.3 Gestational [pregnancy-induced] hypertension without significant proteinuria, third trimester (principal); O99.013 Anemia complicating pregnancy, third trimester; D64.9 Anemia, unspecified; O24.419 Gestational diabetes mellitus in pregnancy, unspecified control; Z3A.37 37 weeks gestation of pregnancy; O99.891 Other specified diseases and conditions complicating pregnancy; R51.9 Headache, unspecified
CPT/HCPCS: 36415; 59025; 80053; 81001; 81003; 82570; 84156; 85025; 86762; 86780; 86900; 86901; 87086; 87340; 87389; 87491; 87591; 87661; 99215

== ENCOUNTER 2021-04-13 11:13 | Outpatient (CLI) | payer OTHER ==
--- NOTE | 2021-04-13 14:38 | Ultrasound Report ---
PROCEDURE: OB F/U or Repeat INDICATIONS: SUPERVISION OF HIGH RISK OUTSIDE/PRIOR DATING DATA: Last menstrual period (LMP): 07/21/2020. LMP-based estimated date of delivery (ELIZABETH): 04/27/2021. First dating scan (date and location): 03/16/2021. Estimated date of delivery (ELIZABETH) from first dating scan: 04/27/2021. The below data below was generated using the ultrasound ELIZABETH of 03/16/2021 TECHNIQUE: Real-time scanning was performed of the fetus, with image documentation and biometric measurements. COMPARISON: None. FINDINGS: General: A single living intrauterine gestation is present. Presentation: Vertex Placenta: Placental position is anterior, without previa. Cord insertion to the placenta is 2.7 cm f rom the placental edge. Amniotic fluid index: 14.5 cm, within normal limits for gestational age. heart rate: 160 beats per minute. Maternal cervical canal: Not well seen at late stage of biometrics: Biparietal diameter: 9.3 cm, 37 weeks 4 days Head circumference: 32.9 cm, 37 weeks 2 days Abdominal circumference: 34.6 cm, 38 weeks 3 days Femur length: 7.2 cm, 37 weeks 0 days Estimated gestational age from initial scan: 38 weeks 0 days Composite gestational age from present scan: 37 weeks 4 days Estimated weight and percentile: 3346 g, 61st percentile Measurement variability in biometric dating: +/- 10 days from 12-20 weeks gestation, +/- 2 weeks from 20-30 weeks gestation, +/- 3 weeks at 30 weeks gestation or more. Other: Not applicable. IMPRESSION: 1. Living late third trimester intrauterine . 2. Cord insertion on the placenta is 2.7 cm from the placental edge. 3. Current ultrasound age is 3 days less than clinical age based on initial ultrasound. Reviewed by: Otto Carrasco MD on 04/13/2021 1:37 PM ROC[facility]O Approved by: Otto Carrasco MD on 04/13/2021 1:37 PM ROC[facility]O Station ID: [id number]
== END 2021-04-13 11:14 | disposition home or self-care (01) ==
LOC: DI 11:13
PROVIDERS: ATTEND Obstetrics & Gynecology
DX: O09.93 Supervision of high risk pregnancy, unspecified, third trimester (principal); O43.123 Velamentous insertion of umbilical cord, third trimester; O10.113 Pre-existing hypertensive heart disease complicating pregnancy, third trimester; Z3A.37 37 weeks gestation of pregnancy

== ENCOUNTER 2021-04-15 08:58 | Outpatient (CLI) | payer OTHER ==
[2021-04-15 10:15] LABS: BASOPHILS # (AUTO) 0.1 10^3/uL (0.0-0.1); BASOPHILS % (AUTO) 0.4 %; EOSINOPHILS # (AUTO) 0.1 10^3/uL (0.0-0.7); EOSINOPHILS % (AUTO) 0.6 %; HCT - HEMATOCRIT 32.8 % (37.0-47.0); LYMPHOCYTES # (AUTO) 3.4 10^3/uL (1.5-3.5); LYMPHOCYTES % (AUTO) 27.2 %; MEAN CORPUSCULAR HEMOGLOBIN 27.8 pg (27.0-31.0); MEAN CORPUSCULAR HGB CONC 33.5 g/dL (32.0-36.0); MEAN PLATELET VOLUME 10.7 fL (7.9-10.8); MONOCYTES # (AUTO) 0.6 10^3/uL (0.0-1.0); MONOCYTES % (AUTO) 4.6 %; NEUTROPHILS # (AUTO) 8.2 10^3/uL (1.5-6.6); NEUTROPHILS % (AUTO) 66.8 %; PLT - PLATELET COUNT 282 10^3/uL (130-450); RED BLOOD COUNT 3.95 10^6/uL (4.20-5.40); RED CELL DISTRIBUTION WIDTH 16.4 % (12.0-15.0); WHITE BLOOD COUNT 12.3 x10^3/uL (4.8-10.8)
[2021-04-15 10:23] LABS: CREATININE,URINE 326.7 mg/dL; PROTEIN/CREATININE RATIO,URINE 0.3 (<=0.2)
[2021-04-15 10:27] LABS: ALBUMIN 2.8 g/dL (3.2-5.5); BILIRUBIN,TOTAL 0.5 mg/dL (0.2-1.0); CALCIUM 8.9 mg/dL (8.5-10.3); CREATININE 0.7 mg/dL (0.4-1.0); POTASSIUM 4.1 mmol/L (3.5-5.0); TOTAL PROTEIN 5.7 g/dL (6.7-8.2)
--- NOTE | 2021-04-15 10:27 | PROCEDURE REPORT ---
- HPI Current EDU 04/27/21 Gestation 38 Weeks and 2 Days 1 Para 0 Vital Signs Temperature 98.4 F 04/15/21 09:11 Heart Rate 105 H 04/15/21 09:11 Respiratory Rate 20 04/15/21 09:11 Blood Pressure 148/110 H 04/15/21 09:11 O2 Saturation 98 04/15/21 09:11 Temperature 98.4 F 04/15/21 09:11 Heart Rate 99 04/15/21 10:16 Respiratory Rate 18 04/15/21 10:10 Blood Pressure 140/94 H 04/15/21 10:16 O2 Saturation 98 04/15/21 09:47 Patient is here for NST at 38 2/7 weeks. Patient has a headache that is not improved with Tylenol. Patient reports good movement. Patient denies contractions. Patient denies SROM or vaginal bleeding. Patient states she feels lethargic/tired a lot in the last couple of days. NST: Baseline 140 with moderate variability and accelerations. No decelerations. No contractions. Catetory I NST that is reactive. - NST Procedure NST Procedure Start Date 04/15/21 Start Time 09:08 Stop Time 17:45 Patient States Movement Yes
--- NOTE | 2021-04-15 10:37 | PROVIDER PROGRESS NOTE ---
- HPI Chief Complaint: Hypertension/PIH Current : Current EDU 04/27/21 Gestation 38 Weeks and 2 Days 1 Para 0 Vital Signs Temperature 98.4 F 04/15/21 09:11 Heart Rate 105 H 04/15/21 09:11 Respiratory Rate 20 04/15/21 09:11 Blood Pressure 148/110 H 04/15/21 09:11 O2 Saturation 98 04/15/21 09:11 Temperature 98.4 F 04/15/21 09:11 Heart Rate 99 04/15/21 10:16 Respiratory Rate 18 04/15/21 10:10 Blood Pressure 140/94 H 04/15/21 10:16 O2 Saturation 98 04/15/21 09:47 - Exam Patient presented for NST due to previous elevated blood pressure. Patient reports a headache that is not resolved with Tylenol. Patient reports good movement. Patient denies contractions, SROM or vaginal bleeding. Patient has felt "tired" the last few days. Patient had PIH labs performed on Patient denies blurred vision or visual changes. Patient denies nausea or vomiting. O-BP 148/110, 156/105, 152/96 160/92, 149/96 139/88 152/101 141/86, 131/77. 140/94 General: Patient is resting comfortably on her left side. HEENT: Normocephalic. Chest: Clear to auscultation in all moreno, no rales, wheezes or rhonchi. Heart: RRR without murmur auscultated. Abdomen: Gravid, non-tender to palpation. Extremities: Some edema, non-pitting in pretibial and pedal areas Neuro: DTR's +2/+4, Alert and oriented times 3. Monitor is 140's with moderate variability and accelerations. No contractions. Labs today WBC 12.3, HGB is 11.0, HCT is 32.8, Platelets are 282. Protein/Creatinine is 0.3. This has increased since 04/10 was [address] Sp[address] Doim Shaikh who accepted the transfer to [facility] in [place]. Anaya BONILLA was Charge Nurse was notified. A-IUP 38 2/7 Gestational Diabetes, Diet Controlled. Gestational Hypertension/Pre-Eclampsia with Headache not resolved with Tylenol. P- Transfer patient to Dr. Shaikh for induction of labor. Transfer by ambulance with IV access. - Procedures NST Procedure: NST Procedure Start Date 04/15/21 Start Time 09:08 Stop Time 17:45 Patient States Movement Yes
[2021-04-15] MEDS ORDERED: ACETAMINOPHEN 500 MG TABLET PO SCH (11:20)
[2021-04-15] MEDS ORDERED: LABETALOL 20 MG/4 ML SYRINGE IVP ONE (12:35)
[2021-04-15 12:54] VITALS: BP 132/71
[2021-04-15] MEDS ORDERED: LABETALOL 5 MG/1 ML 20 ML MDV IV SCH (13:00)
== END 2021-04-15 12:45 | disposition short-term general hospital (02) ==
LOC: WFO 08:58 → FBP 08:59 → WFO 12:45
PROVIDERS: ATTEND Obstetrics & Gynecology
DX: O24.410 Gestational diabetes mellitus in pregnancy, diet controlled (principal); O14.93 Unspecified pre-eclampsia, third trimester; Z3A.38 38 weeks gestation of pregnancy
CPT/HCPCS: 36415; 59025; 80053; 82570; 84156; 85025; 99215; A9270

== ENCOUNTER 2021-04-15 12:45 | Outpatient (CLI) | payer OTHER | END 2021-04-15 12:46 | disposition short-term general hospital (02) | LOC: EMS 12:45 | PROVIDERS: ATTEND Obstetrics & Gynecology | DX: O14.93 Unspecified pre-eclampsia, third trimester (principal); O24.419 Gestational diabetes mellitus in pregnancy, unspecified control; Z3A.38 38 weeks gestation of pregnancy | CPT/HCPCS: A0425; A0428 ==

== ENCOUNTER 2021-05-29 06:51 | Outpatient (CLI) | payer OTHER ==
[2021-05-29 07:41] LABS: GTT GLUCOSE,FASTING 96 mg/dL (70-100)
== END 2021-05-29 06:52 | disposition home or self-care (01) ==
LOC: LAB 06:51
PROVIDERS: ATTEND Obstetrics & Gynecology
DX: O24.419 Gestational diabetes mellitus in pregnancy, unspecified control (principal)
CPT/HCPCS: 36415; 82951

== ENCOUNTER 2021-07-02 05:25 | Emergency (ER) | payer OTHER ==
[2021-07-02 05:52] VITALS: BP 161/101
--- NOTE | 2021-07-02 06:02 | ED Physician Documentation ---
PD HPI LOWER EXT INJURY - Stated complaint Stated Complaint: L LEG WARM TO TOUCH, POST PARDOM - Chief complaint Chief Complaint: Ext Problem - History obtained from History obtained from: Patient - History of Present Illness PD HPI LOW EXT INJURY LOCATION: Left, Lower leg, Calf Type of injury: No: Fall, Blunt / blow Timing - onset: How many days ago (3 days of feeling tenderness, swelling and some warmth in medial posterior lower leg. No noted injury per se. It is more swollen during day, and iproves when rested and elevated. No prior similar. She is 9 weeks post and so is concerned about DVT. No dyspnea nor chest pain.) Timing - duration: Days (3) Timing - details: Gradual onset, Still present, Waxing and waning Worsened by: Palpating Associated symptoms: Swelling (mild local), Discolored (red/warm at times.). 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 - Past Surgical History Past Surgical History: Yes - Present Medications Home Medications: Ambulatory Orders Medication Instructions Recorded Confirmed Aspirin [Aspirin EC] 81 mg PO DAILY 04/07/21 04/07/21 Pnv No.95/Ferrous Fum/Folic AC 1 each PO DAILY 04/07/21 04/07/21 [ Caplet] - Allergies Allergies/Adverse Reactions: Allergies Allergy/AdvReac Type Severity Reaction Status Date / Time cefprozil [From Cefzil] Allergy Itching Verified 07/02/21 05:52 promethazine HCl * Allergy Itching Verified 07/02/21 05:52 [From Phenergan] Sulfa (Sulfonamide Allergy Cramps Verified 07/02/21 05:52 Antibiotics) - Social History Does the pt smoke?: No Smoking Status: Never smoker Does the pt drink ETOH?: Yes Does the pt have substance abuse?: No - Immunizations Immunizations are current?: No - POLST Patient has POLST: No PD ED PE NORMAL - Vitals Vital signs reviewed: Yes - General General: Alert and oriented X 3, No acute distress, Well developed/nourished - Neck Neck: Supple, no meningeal sign, No adenopathy - Cardiac Cardiac: RRR, No murmur - Derm Derm: Normal color, Warm and dry - Extremities Extremities: Other (Right calf is normal. The left calf shows a local area of tenderness which almost feels firm in a tubular shape about 2 cm length on the medial posterior calf. No skin sores or lesions. The popliteal area is minimally tender without any masses. The thigh is nontender. There are no skin sores.) - Neuro Neuro: No motor deficit, No sensory deficit Results - Vitals Vitals: Vital Signs - 24 hr 07/02/21 07/02/21 05:49 06:31 Temperature 36.6 C Heart Rate 93 Respiratory 16 16 Rate Blood Pressure 161/101 H O2 Saturation 98 Oxygen O2 Source Room air - Rads (name of study) duplex Radiology: Prelim report reviewed, Discussed with rads (No DVT.There is a small fluid collection consistent with Pate's cyst in the calf popliteal with some fluid tracking down.), See rad report PD MEDICAL DECISION MAKING - ED course Complexity details: reviewed results, re-evaluated patient (No DVT. Clinically it does feel like a superficial phlebitis. Ultrasound suggestive of Pate's cyst with some fluid draining down the upper posterior calf.), considered differential, d/w patient Departure - Departure Disposition: 01 Home, Self Care Clinical Impression: Pain of left calf, Superficial phlebitis Bakers cyst Qualifiers: Laterality: left Qualified Code(s): M71.22 - Synovial cyst of popliteal space [Pate], left knee Condition: Stable Record reviewed to determine appropriate education?: Yes Instructions: ED Cyst Pate, ED Phlebitis Superficial Follow-Up: ERWIN CARDENAS MD [Primary Care Provider] - Kolby Thacker MD [Provider Admit Priv/Credential] - Comments: Your ultrasound is good without showing any signs of DVT (blood clots). They do see a cyst on the backside of the knee with a small trailing of fluid below it. This is called a Pate's cyst and some of your pain in the calf may be coming from fluid leaking out at times causing some inflammation. Otherwise it does feel like a localized area of inflammation so I believe there may be some superficial phlebitis which is an inflammation of the surface vein. For either of these, I would suggest using some ibuprofen 400 to 600 mg 3 times a day with food. Add Tylenol if needed for pains. See if it improves over the next several days or so. You can follow-up with orthopedics regarding the Pate's cyst to see if it needs any particular treatment or correction. Discharge Date/Time: 07/02/21 07:50
[2021-07-02] MEDS ORDERED: IBUPROFEN 600 MG TABLET PO STA (06:12)
--- NOTE | 2021-07-02 07:44 | Ultrasound Report ---
PROCEDURE: Duplex Ext Veins Left INDICATIONS: calf pain and swelling; 9 wks post TECHNIQUE: Real-time imaging, as well as color and pulse Doppler interrogation, were performed of the lower extr emity deep veins from the inguinal ligament to the popliteal fossa. COMPARISON: None. FINDINGS: The deep veins are normally compressible, and free of intraluminal thrombus. Color and pu lse Doppler demonstrate normal phasic intraluminal flow. There is normal augmentation response to di stal compression maneuver. 10.7 x 5.4 x 5.1 cm fluid collection with an adjacent 4.9 x 3.3 x 0.8 cm noted in the proximal medial calf in the region of pain. Fluid collections nonspecific may represent hematoma, however inflated f luid collection cannot be excluded by imaging alone. IMPRESSION: 1. No evidence of deep vein thrombosis involving the left lower extremity. 2. Fluid collections in the left calf the region of clinical interest may represent hematomas, howeve r infected fluid collections cannot be excluded by imaging alone. Reviewed by: Vicki Caba MD, PhD on 07/02/2021 7:42 AM PDT Approved by: Vicki Caba MD, PhD on 07/02/2021 7:42 AM PDT Station ID: [id number]
== END 2021-07-02 07:50 | disposition home or self-care (01) ==
LOC: ED 05:25
DX: I80.02 Phlebitis and thrombophlebitis of superficial vessels of left lower extremity (principal); M71.22 Synovial cyst of popliteal space [Baker], left knee; Z79.82 Long term (current) use of aspirin
CPT/HCPCS: 93971; 99282; 99284; A9270

== ENCOUNTER 2021-12-23 08:13 | Outpatient (CLI) | payer OTHER ==
--- NOTE | 2021-12-23 14:26 | XRAY Report ---
PROCEDURE: Knee 4 View BILAT INDICATIONS: BILAT KNEE PAIN TECHNIQUE: 3 views of the bilateral knee(s) were acquired. COMPARISON: None. FINDINGS: Bones: No fractures or dislocations. No suspicious bony lesions. Moderate bilateral degenerative ch moni. Surface irregularities of the femoral condyles bilaterally. Bilateral moderate lateral compartm ent joint space loss. Question bilateral intra-articular bodies. Soft tissues: No joint effusion. No suspicious soft tissue calcifications. IMPRESSION: Bilateral degenerative change of the knees with moderate bilateral lateral compartment j oint space loss and possible intra-articular bodies. Reviewed by: Otto Carrasco MD on 12/23/2021 2:24 PM PST Approved by: Otto Carrasco MD on 12/23/2021 2:24 PM PST Station ID: [id number]
== END 2021-12-23 08:14 | disposition home or self-care (01) ==
LOC: DI.WOS 08:13
PROVIDERS: ATTEND Physician Assistant
DX: M17.0 Bilateral primary osteoarthritis of knee (principal)